=== PATIENT | male | born 1960 | race American Indian/Alaskan Native ===

== ENCOUNTER 2016-07-08 17:54 | Emergency (ER) | payer OTHER ==
[~2016-07-08] VITALS: Ht 177.8 cm; Wt 124.4 kg
[~2016-07-08 17:54] MED LIST: ALLO100T30 PO; APIX5TAB PO; CHLO25TA PO; DIAZ5TAB PO; FLEC50TA25 PO; METO-99 PO; OXYC-302 PO
[2016-07-08 19:04] LABS: HEMOGLOBIN 15.5 g/dL (13.7-18.0)
[2016-07-08 19:14] LABS: BLOOD UREA NITROGEN 12 mg/dL (7-18)
[2016-07-08 19:22] LABS: ASPARTATE AMINO TRANSFERASE 37 U/L (15-37)
[2016-07-08 19:35] VITALS: BP 149/95
[2016-07-08] MEDS ORDERED: FENO48TA16 PO (20:01)
[2016-07-08] MEDS ORDERED: HYDR-3307 PO (20:01)
[2016-07-08] MEDS ORDERED: APIX2.5T PO (20:01)
== END 2016-07-08 20:45 | disposition home or self-care (01) ==
LOC: ED 20:42
DX: S39.011A Strain of muscle, fascia and tendon of abdomen, initial encounter (principal); Z90.49 Acquired absence of other specified parts of digestive tract; X58.XXXA Exposure to other specified factors, initial encounter; Y93.89 Activity, other specified; Y92.89 Other specified places as the place of occurrence of the external cause; Y99.8 Other external cause status
CPT/HCPCS: 36415; 74176; 80053; 81003; 83690; 85025

== ENCOUNTER → 2016-09-01 | Outpatient (CLI) | payer OTHER ==
[~2016-09-01] MED LIST changes: +APIX2.5T PO; +FENO48TA16 PO; +HYDR-3307 PO; +REGADENOSON 0.4 MG/5 ML SYRINGE ONE
== END | disposition home or self-care (01) ==
LOC: CFH 06:38
PROVIDERS: ATTEND Internal Medicine Cardiovascular Disease
DX: I08.1 Rheumatic disorders of both mitral and tricuspid valves (principal); I37.1 Nonrheumatic pulmonary valve insufficiency; Q21.1 Atrial septal defect; I48.0 Paroxysmal atrial fibrillation; I10 Essential (primary) hypertension
CPT/HCPCS: 78452; 93017; 93306; A9502; J2785

== ENCOUNTER → 2016-09-17 | Outpatient (CLI) | payer OTHER ==
[~2016-09-17] MED LIST changes: -REGADENOSON 0.4 MG/5 ML SYRINGE ONE
== END | disposition home or self-care (01) ==
LOC: CFH 15:31
PROVIDERS: ATTEND Neurological Surgery
DX: M50.31 Other cervical disc degeneration, high cervical region (principal); M50.321 Other cervical disc degeneration at C4-C5 level; M50.322 Other cervical disc degeneration at C5-C6 level; Z98.890 Other specified postprocedural states; Z98.1 Arthrodesis status
CPT/HCPCS: 72040

== ENCOUNTER → 2016-10-05 | Outpatient (CLI) | payer OTHER | END | disposition home or self-care (01) | LOC: CFH 14:27 | PROVIDERS: ATTEND Neurological Surgery | DX: S33.130A Subluxation of L3/L4 lumbar vertebra, initial encounter (principal); M48.06 Spinal stenosis, lumbar region; M47.897 Other spondylosis, lumbosacral region; M12.88 Other specific arthropathies, not elsewhere classified, other specified site; Z98.1 Arthrodesis status; X58.XXXA Exposure to other specified factors, initial encounter; Y93.89 Activity, other specified; Y92.89 Other specified places as the place of occurrence of the external cause; Y99.8 Other external cause status | CPT/HCPCS: 72110; 72131 ==

== ENCOUNTER → 2016-11-20 | Day surgery (SDC) | payer OTHER ==
[~2016-11-20] MED LIST changes: +LIDOCAINE 1%, 2ML ONE
== END ==
LOC: OUT 11:41
PROVIDERS: ATTEND Neurological Surgery
DX: Z02.9 Encounter for administrative examinations, unspecified (principal)

== ENCOUNTER 2016-12-18 06:31 | Day surgery (SDC) | payer OTHER ==
[~2016-12-18] VITALS: Ht 177.8 cm; Wt 128.3 kg
[~2016-12-18 06:31] MED LIST changes: -LIDOCAINE 1%, 2ML ONE
[2016-12-18 07:45] VITALS: BP 134/89
[2016-12-18] MEDS ORDERED: SODIUM CHLORIDE 0.9% 1,000 ML IV SCH (07:48)
[2016-12-18 09:47] LABS: CYTOLOGY BODY FLUID RECD INTO PATHOLOGY; CYTOLOGY BODY FLUID SOURCE CEREBROSPINAL FLUID
[2016-12-18 10:17] LABS: GLUCOSE, CSF 59 mg/dL (40-80)
[2016-12-18] MEDS ORDERED: OMNIPAQUE 180 MG/ML, 10ML VIAL ONE (11:43)
[2016-12-24 11:07] LABS: ALBUMIN CSF 35 mg/dL (11-48); ALBUMIN SERUM 3.8 g/dL (3.5-5.5); CSF IGG INDEX 0.8 (0.0-0.7); CSF/SERUM ALBUMIN INDEX 9 (0-8); IGG SERUM 677 mg/dL (700-1600); IGG SYNTHESIS RATE CSF 7.2 mg/day (-9.9 TO +3.3); IGG/ALBUMIN RATIO CSF 0.13 (0.00-0.25)
[2016-12-25 14:07] LABS: ANTI-GLIAL NUCLEAR AB TYPE 1 Negative titer (<1:240); STRIATIONAL (STRIAT MUSCLE) AB Negative titer (<1:120)
== END 2016-12-18 12:20 ==
LOC: OUT 06:31
PROVIDERS: ATTEND Neurological Surgery
DX: R55 Syncope and collapse (principal); M48.06 Spinal stenosis, lumbar region; M51.26 Other intervertebral disc displacement, lumbar region; M51.36 Other intervertebral disc degeneration, lumbar region; I10 Essential (primary) hypertension; Z87.891 Personal history of nicotine dependence; Z91.09 Other allergy status, other than to drugs and biological substances
CPT/HCPCS: 36415; 62270; 62284; 72132; 82040; 82042; 82164; 82784; 82945; 83519; 83520; 83873; 84157; 86256; 86316; 86592; 86645; 86695; 86696; 86762; 86777; 86778; 87070; 87205; 87476; 87496; 87529; 87798; 88108; 89051; Q9965; 77002

== ENCOUNTER → 2017-02-02 | Outpatient (CLI) | payer OTHER ==
[~2017-02-02] MED LIST changes: +CO Q10 PO; +MULT-516 PO; +POTASSIUM PO; +ROSU10TA PO; +VITA1TAB19 PO; +VITAMIN B12 IM; +VITAMIN D3 GUMMIES PO
[2017-02-02 14:25] LABS: HEMATOCRIT 42.8 % (39.2-51.8); HEMOGLOBIN 14.8 g/dL (13.7-18.0); WHITE BLOOD COUNT 7.7 x10^3/uL (3.4-10)
[2017-02-02 14:36] LABS: BLOOD UREA NITROGEN 17 mg/dL (7-18)
== END | disposition home or self-care (01) ==
LOC: STAR 13:37
PROVIDERS: ATTEND Neurological Surgery
DX: Z01.818 Encounter for other preprocedural examination (principal); R94.31 Abnormal electrocardiogram [ECG] [EKG]; R79.1 Abnormal coagulation profile; Z95.0 Presence of cardiac pacemaker; Z98.1 Arthrodesis status
CPT/HCPCS: 36415; 71020; 80048; 85025; 85610; 85730; 93005

== ENCOUNTER 2017-02-11 08:08 | Observation (INO) | payer OTHER ==
[~2017-02-11] VITALS: Ht 177.8 cm; Wt 135.8 kg
[2017-02-11] MEDS ORDERED: LACTATED RINGERS 1,000 ML IV SCH (08:58)
[2017-02-11 09:05] VITALS: BP 147/98
[2017-02-11] MEDS ORDERED: BUPIVACAINE/PF 0.5% ONE (10:48)
[2017-02-11] MEDS ORDERED: THROMBIN 5,000 UNIT VIAL TP ONE (10:48)
[2017-02-11] MEDS ORDERED: BACITRACIN 50,000 UNIT ONE (10:49)
[2017-02-11] MEDS ORDERED: FENTANYL PF 100 MCG/2ML ONE ×2 (10:57→12:22)
[2017-02-11] MEDS ORDERED: HYDROmorphone 1 MG/ML, 1ML ONE ×3 (10:57→15:08)
[2017-02-11] MEDS ORDERED: KETAMINE 10 MG/ML, 20ML ONE (10:57)
[2017-02-11] MEDS ORDERED: SUCCINYLCHOLINE 20 MG/ML, 10ML ONE (10:59)
[2017-02-11] MEDS ORDERED: DEXAMETHASONE 4 MG/ML, 5ML ONE (10:59)
[2017-02-11] MEDS ORDERED: ROCURONIUM 10 MG/ML ONE ×2 (10:59)
[2017-02-11] MEDS ORDERED: ONDANSETRON 2MG/ML, 2ML ONE (10:59)
[2017-02-11] MEDS ORDERED: PROPOFOL 10 MG/ML, 50ML ONE (10:59)
[2017-02-11] MEDS ORDERED: CEFAZOLIN 1,000 MG ONE (10:59)
[2017-02-11] MEDS ORDERED: METOCLOPRAMIDE 5 MG/ML, 2ML ONE (10:59)
[2017-02-11] MEDS ORDERED: LIDOCAINE-MPF 2% ,5ML ONE (10:59)
[2017-02-11] MEDS ORDERED: HYDROmorphone 1 MG/ML, 1ML IV PRN (12:00)
[2017-02-11] MEDS ORDERED: MIDAZOLAM 1 MG/ML, 2ML IV PRN (12:00)
[2017-02-11] MEDS ORDERED: ACETAMINOPHEN 325 MG TABLET PO PRN (12:00)
[2017-02-11] MEDS ORDERED: LABETALOL 5MG/ML, 20ML IV PRN (12:00)
[2017-02-11] MEDS ORDERED: DIAZEPAM 5 MG/ML, 2ML IVPush PRN (12:00)
[2017-02-11] MEDS ORDERED: MEPERIDINE/PF 25MG/0.5ML IVPush PRN (12:00)
[2017-02-11] MEDS ORDERED: PROMETHAZINE 25 MG/ML, 1ML IV PRN (12:00)
[2017-02-11] MEDS ORDERED: hydrALAzine 20 MG/ML, 1ML IV PRN (12:00)
[2017-02-11] MEDS ORDERED: ONDANSETRON 2MG/ML, 2ML IVPush PRN (12:00)
[2017-02-11] MEDS ORDERED: FENTANYL PF 100 MCG/2ML IV PRN (12:00)
[2017-02-11] MEDS ORDERED: OXYcodone 5 MG/5 ML ORAL.SOL UDC PO PRN (12:00)
[2017-02-11] MEDS ORDERED: ACETAMINOPHEN 650 MG/20.3 ML UDC ONE (14:54)
[2017-02-11] MEDS ORDERED: OXYcodone 5 MG/5 ML ORAL.SOL UDC ONE (14:54)
[2017-02-11] MEDS ORDERED: DIPHENHYDRAMINE 50 MG/ML, 1ML IVPush PRN (17:00)
[2017-02-11] MEDS ORDERED: DIAZEPAM 5 MG/ML, 2ML IV PRN (17:00)
[2017-02-11] MEDS ORDERED: HYDROmorphone 2 MG/ML, 1ML IM PRN (17:00)
[2017-02-11] MEDS ORDERED: BISACODYL 10 MG SUPP PR PRN (17:00)
[2017-02-11] MEDS ORDERED: ONDANSETRON 2MG/ML, 2ML IV PRN (17:00)
[2017-02-11] MEDS ORDERED: DIPHENHYDRAMINE 50 MG/ML, 1ML IM PRN (17:00)
[2017-02-11] MEDS ORDERED: DIPHENHYDRAMINE 50 MG CAPSULE PO PRN (17:00)
[2017-02-11] MEDS ORDERED: MAGNESIUM HYDROXIDE 8%, 30ML UDC PO PRN (17:00)
[2017-02-11] MEDS ORDERED: PROMETHAZINE 25 MG/ML, 1ML IM PRN (17:00)
[2017-02-11] MEDS ORDERED: HYDROmorphone 2MG TABLET PO PRN (17:00)
[2017-02-11] MEDS: FLECAINIDE 50MG TABLET PO SCH (18:23)
[2017-02-11] MEDS: NS + 20MEQ KCL 1,000 ML IV SCH (18:23)
[2017-02-11] MEDS: CEFAZOLIN PMX 1GM/50ML 50 ML IVPB SCH (18:33)
[2017-02-11] MEDS: ATORVASTATIN 20 MG TABLET PO SCH (20:58)
[2017-02-11] MEDS ORDERED: ZOLPIDEM 5MG TABLET PO PRN (21:00)
[2017-02-11 23:45] VITALS: BP 143/80
[2017-02-12] MEDS: NS + 20MEQ KCL 1,000 ML IV SCH ×2 (02:39→17:09)
[2017-02-12] MEDS: CEFAZOLIN PMX 1GM/50ML 50 ML IVPB SCH (02:48)
[2017-02-12] MEDS: FLECAINIDE 50MG TABLET PO SCH ×2 (04:57→17:09)
[2017-02-12 05:26] VITALS: BP 105/65
[2017-02-12] MEDS ORDERED: SENNA/DOCUSATE TABLET ONE (07:30)
[2017-02-12] MEDS: CHLORTHALIDONE 25 MG TABLET PO SCH (07:33)
[2017-02-12] MEDS: POTASSIUM CHLORIDE 20 MEQ TAB.ER.PRT PO SCH (07:34)
[2017-02-12] MEDS: METOPROLOL TARTRATE 100 MG TABLET PO SCH (07:34)
[2017-02-12] MEDS: ALLOPURINOL 300 MG TABLET PO SCH (07:35)
[2017-02-12] MEDS: SENNA/DOCUSATE TABLET PO SCH (07:35)
[2017-02-12] MEDS: CHOLECALCIFEROL 1,000 UNIT TABLET PO SCH (07:35)
[2017-02-12] MEDS: MULTIVITAMIN 1 TABLET PO SCH (07:35)
[2017-02-12 07:37] VITALS: BP 142/83
[2017-02-12] MEDS ORDERED: HYDROcodone/APAP 10/325 MG TABLET PO SCH (09:00)
[2017-02-12] MEDS ORDERED: FENOFIBRATE 54 MG TABLET PO SCH (09:00)
[2017-02-12] MEDS ORDERED: METH750T87 PO (09:02)
[2017-02-12] MEDS: METHOCARBAMOL 750 MG TABLET PO PRN (10:57)
[2017-02-12] MEDS: HYDROcodone/APAP 10/325 MG TABLET PO PRN ×3 (10:58→22:26)
[2017-02-12 13:30] VITALS: BP 111/65
[2017-02-12] MEDS: DIAZEPAM 5 MG TABLET PO PRN ×2 (17:06→22:26)
[2017-02-12 20:48] VITALS: BP 119/67
[2017-02-12] MEDS: ATORVASTATIN 20 MG TABLET PO SCH (22:26)
[2017-02-13 00:50] VITALS: BP 115/68
[2017-02-13] MEDS: HYDROcodone/APAP 10/325 MG TABLET PO PRN ×3 (03:17→14:12)
[2017-02-13] MEDS ORDERED: DOCU100C33 PO (03:56)
[2017-02-13] MEDS: METHOCARBAMOL 750 MG TABLET PO PRN ×2 (05:47→14:11)
[2017-02-13] MEDS: FLECAINIDE 50MG TABLET PO SCH (05:48)
[2017-02-13] MEDS: NS + 20MEQ KCL 1,000 ML IV SCH (05:48)
[2017-02-13 08:41] VITALS: BP 113/68
[2017-02-13] MEDS: POTASSIUM CHLORIDE 20 MEQ TAB.ER.PRT PO SCH (09:48)
[2017-02-13] MEDS: METOPROLOL TARTRATE 100 MG TABLET PO SCH (09:49)
[2017-02-13] MEDS: SENNA/DOCUSATE TABLET PO SCH (09:49)
[2017-02-13] MEDS: MULTIVITAMIN 1 TABLET PO SCH (09:49)
[2017-02-13] MEDS: ALLOPURINOL 300 MG TABLET PO SCH (09:50)
[2017-02-13] MEDS: CHOLECALCIFEROL 1,000 UNIT TABLET PO SCH (09:50)
[2017-02-13] MEDS: CHLORTHALIDONE 25 MG TABLET PO SCH (09:51)
[2017-02-13 13:35] VITALS: BP 150/88
[2017-02-13] MEDS ORDERED: HYDR-3307 PO (17:11)
== END 2017-02-13 17:40 | disposition home or self-care (01) ==
LOC: OUT 08:08 → 4NOR 16:00 → OUT 23:20 → 4NOR 23:21
PROVIDERS: ADMIT Neurological Surgery; ATTEND Neurological Surgery
DX: M47.27 Other spondylosis with radiculopathy, lumbosacral region (principal); M48.07 Spinal stenosis, lumbosacral region
CPT/HCPCS: 20936; 22612; 22840; 36415; 63047; 63048; 85520; 96365; 96375; 97163; G0378; J0330; J0690; J1100; J1170; J2270; J2405; J2704; J2765; J3010; J3480; J3490; J7120

== ENCOUNTER → 2017-04-12 | Outpatient (CLI) | payer OTHER ==
[~2017-04-12] MED LIST changes: +DOCU100C33 PO; +METH750T87 PO
== END ==
LOC: RAD 14:34
PROVIDERS: ATTEND Neurological Surgery
DX: M48.061 Spinal stenosis, lumbar region without neurogenic claudication (principal); M51.26 Other intervertebral disc displacement, lumbar region
CPT/HCPCS: 72131

== ENCOUNTER → 2017-09-07 | Outpatient (CLI) | payer OTHER | END | disposition home or self-care (01) | LOC: CFH 09:09 | PROVIDERS: ATTEND Neurological Surgery | DX: M51.36 Other intervertebral disc degeneration, lumbar region (principal); M48.062 Spinal stenosis, lumbar region with neurogenic claudication | CPT/HCPCS: 72100 ==